=== PATIENT | male | born 1980 ===

== ENCOUNTER 2017-11-13 14:49 | Emergency (ER) | payer SELFPAY ==
[~2017-11-13] VITALS: Ht 180.3 cm; Wt 68.2 kg
[2017-11-13 14:53] VITALS: Ht 180.3 cm; Wt 68.2 kg
[2017-11-13] MEDS ORDERED: ROBAXIN500 MG PO (17:08)
[2017-11-13] MEDS ORDERED: TORADOL10 MG PO (17:08)
[2017-11-13 17:39] VITALS: BP 135/88
== END 2017-11-13 17:40 | disposition home or self-care (01) ==
LOC: D.ER 14:49
DX: S70.01XA Contusion of right hip, initial encounter (principal); V19.9XXA Pedal cyclist (driver) (passenger) injured in unspecified traffic accident, initial encounter; Y93.55 Activity, bike riding; Y92.410 Unspecified street and highway as the place of occurrence of the external cause; S00.81XA Abrasion of other part of head, initial encounter; S16.1XXA Strain of muscle, fascia and tendon at neck level, initial encounter; R51 Headache; F17.200 Nicotine dependence, unspecified, uncomplicated